=== PATIENT | male | born 1990 | race American Indian/Alaskan Native ===

== ENCOUNTER 2016-09-25 16:07 | Emergency (ER) | payer OTHER ==
[2016-09-25 16:35] VITALS: TEMP 98.8; BMI 27.4
--- NOTE | 2016-09-25 16:50 | ED PDOC ---
Arrival/HPI - General Chief Complaint: Back Pain Time Seen by Provider: 09/25/16 16:33 Historian: Patient - History of Present Illness Narrative History of Present Illness (Text): 09/25/16 16:45 26 y/o female, no pmh, nkda, c/o evaluation of the kidney with no back pain. Pt. stated that he has recent diet change, concerning that this might due to the harm to the kidney, didn't go to see his own pmd, here for the test of kidney function. Pt. has been urinating well and drinking well, no nausea or vomiting, no night sweat, no flank pain, no other medical or psychological complaints. Past Medical History - Provider Review Nursing Documentation Reviewed: Yes - Cardiac Hx Cardiac Disorders: No - Psychiatric Hx Psychophysiologic Disorder: Yes Hx Anxiety: Yes Hx Depression: Yes Hx Substance Use: No - Surgical History Hx Musculoskeletal Surgery: Yes (left elbow) - Anesthesia Hx Anesthesia: Yes Hx Anesthesia Reactions: No Hx Malignant Hyperthermia: No Family/Social History - Physician Review Nursing Documentation Reviewed: Yes Family/Social History: Unknown Family HX Smoking Status: n Hx Alcohol Use: No Hx Substance Use: No Allergies/Home Meds Allergies/Adverse Reactions: Allergies No Known Allergies Allergy (Verified 09/25/16 16:32) Home Medications: Home Meds Medication Instructions Recorded Confirmed Sertraline [Zoloft] 25 mg PO DAILY 09/25/16 09/25/16 Review of Systems - Review of Systems Constitutional: absent: Fatigue, Fevers Eyes: absent: Vision Changes ENT: absent: Hearing Changes Respiratory: absent: Cough Cardiovascular: absent: Chest Pain Gastrointestinal: absent: Abdominal Pain, Diarrhea, Nausea, Vomiting Skin: absent: Rash, Pruritis, Skin Lesions, Laceration, Abscess, Ulcer Neurological: absent: Headache, Dizziness, Focal Weakness, Gait Changes, Speech Changes, Facial Droop, Disequilibrium, Seizure Physical Exam Vital Signs Reviewed: Yes Vital Signs Temp Pulse Resp BP Pulse Ox 09/25/16 17:50 80 16 119/72 99 09/25/16 16:28 98.8 F 74 18 128/78 100 Temperature: Afebrile Blood Pressure: Normal Pulse: Regular Respiratory Rate: Normal Appearance: Positive for: Well-Appearing, Non-Toxic, Comfortable Pain Distress: None Mental Status: Positive for: Alert and Oriented X 3 - Systems Exam Head: Present: Atraumatic, Normocephalic Pupils: Present: PERRL Extroacular Muscles: Present: EOMI Conjunctiva: Present: Normal Mouth: Present: Moist Mucous Membranes Neck: Present: Normal Range of Motion Respiratory/Chest: Present: Clear to Auscultation, Good Air Exchange. No: Respiratory Distress, Accessory Muscle Use Cardiovascular: Present: Regular Rate and Rhythm, Normal S1, S2. No: Murmurs Abdomen: Present: Normal Bowel Sounds. No: Tenderness, Distention, Peritoneal Signs Back: Present: Normal Inspection. No: CVA Tenderness, Midline Tenderness, Paraspinal Tenderness, Pain with Leg Raise Upper Extremity: Present: Normal Inspection. No: Cyanosis, Edema Lower Extremity: Present: Normal Inspection. No: Edema Neurological: Present: GCS=15, CN II-XII Intact, Speech Normal Skin: Present: Warm, Dry, Normal Color. No: Rashes Psychiatric: Present: Alert, Oriented x 3, Normal Insight, Normal Concentration Medical Decision Making ED Course and Treatment: 09/25/16 16:55 -cmp 09/25/16 17:38 -Labs are within normal limit. -Pt. stated that he wants to be discharge home but he would like to have pain medication just in case if he has back pain in the future. -Discharge home with motrin, stay hydrated, bed rest, follow up with your own pmd within 2 days, return to the ER for any new or worsening signs or symptoms. 09/25/16 18:02 -pt. request a dose of motrin for his lower back pain as he has back pain from sitting, motrin 600mg po ordered. - Lab Interpretations Lab Results: 09/25/16 17:00 Lab Results 09/25/16 17:00: Sodium 140, Potassium 4.0, Chloride 103, Carbon Dioxide 27, Anion Gap 14, BUN 11, Creatinine 1.0, Est GFR ( Amer) > 60, Est GFR (Non- Af Amer) > 60, Random Glucose 89, Calcium 9.1, Total Bilirubin 1.1, AST 21, ALT 32, Alkaline Phosphatase 64, Total Protein 7.9, Albumin 4.5, Globulin 3.4, Albumin/Globulin Ratio 1.3 I have reviewed the lab results: Yes Interpretation: No clinic. lab abnormalty - PA / POULTRY CULLER / Resident Statement MD/DO has reviewed & agrees with the documentation as recorded. Disposition/Present on Arrival - Present on Arrival Any Indicators Present on Arrival: No History of DVT/PE: No History of Uncontrolled Diabetes: No Urinary Catheter: No History of Decub. Ulcer: No History Surgical Site Infection Following: None - Disposition Have Diagnosis and Disposition been Completed?: Yes Diagnosis: General medical examination Disposition: HOME/ ROUTINE Disposition Time: 16:55 Patient Plan: Discharge Patient Problems: Current Active Problems Problem Status Diagnosed General medical examination Acute Condition: GOOD Additional Instructions: Discharge home with motrin, stay hydrated, bed rest, follow up with your own pmd within 2 days, return to the ER for any new or worsening signs or symptoms. Prescriptions: Ibuprofen [Motrin] 600 mg PO QID PRN #24 tab PRN Reason: Other Referrals: Song Johnston MD [Primary Care Provider] - Follow up with primary Forms: WORK NOTE
[2016-09-25 17:19] LABS: ALB/GLOB RATIO 1.3 (1.1-1.8); ALKALINE PHOSPHATASE 64 U/L (38-133); ALT/SGPT 32 U/L (7-56); AST/SGOT 21 U/L (15-59); BILIRUBIN,TOTAL 1.1 mg/dL (0.2-1.3); BLOOD UREA NITROGEN 11 mg/dL (7-21); CALCIUM 9.1 mg/dL (8.4-10.5); CARBON DIOXIDE 27 mmol/L (21-33); CHLORIDE 103 mmol/L (98-107); GFR AFRICAN-AMERICAN > 60; GLUCOSE,RANDOM 89 mg/dL (70-110); SODIUM 140 mmol/L (132-148); TOTAL PROTEIN 7.9 g/dL (5.8-8.3)
[2016-09-25 17:51] VITALS: BP 119/72; PULSE 80; RESP 16; O2SAT 99
== END 2016-09-25 18:14 | disposition home or self-care (01) ==
LOC: ED 16:07
DX: Z00.00 Encounter for general adult medical examination without abnormal findings (principal)

== ENCOUNTER 2018-05-04 15:11 | Emergency (ER) | payer BC, OTHER ==
[2018-05-04 15:51] VITALS: BP 124/70; PULSE 84; RESP 18; TEMP 98.4; O2SAT 98; BMI 31.4
[2018-05-04 16:13] LABS: URINE BILIRUBIN NEGATIVE (NEGATIVE); URINE BLOOD TRACE-INTACT (NEGATIVE); URINE GLUCOSE (UA) NEGATIVE (NEGATIVE); URINE LEUKOCYTE ESTERASE NEGATIVE Leu/uL (NEGATIVE); URINE PROTEIN NEGATIVE mg/dL (<30 mg/dL)
[2018-05-04 16:22] LABS: URINE APPEARANCE CLEAR (CLEAR); URINE COLOR LIGHT YELLOW (YELLOW)
--- NOTE | 2018-05-04 16:35 | ED PDOC ---
Arrival/HPI - General Chief Complaint: Male Genitourinary Time Seen by Provider: 05/04/18 15:12 Historian: Patient - History of Present Illness Narrative History of Present Illness (Text): 05/04/18 17:15 27-year-old male presents today with a 5 day history of urinary frequency and urgency with occasional "leakage of urine". pt denies testicular pain. denies trauma or injury. pt admits to unprotected sex. pt states for the past 5 days he has been having episodes of small amount of urine on underwear. pt denies fever/chills. denies back pain. no abdominal pain. pt states he has been urinating more frequently with occasional dysuria. pt states after he goes to the bathroom he feels like he has to go again. no n/v/d/c. no other complaints. Past Medical History - Provider Review Nursing Documentation Reviewed: Yes - Travel History Have you recently traveled outside [place] w/in the past 3 mons?: No - Cardiac Hx Cardiac Disorders: No - Psychiatric Hx Psychophysiologic Disorder: Yes Hx Anxiety: Yes Hx Depression: Yes Hx Substance Use: No - Surgical History Hx Musculoskeletal Surgery: Yes (left elbow) - Anesthesia Hx Anesthesia: Yes Hx Anesthesia Reactions: No Hx Malignant Hyperthermia: No Family/Social History - Physician Review Nursing Documentation Reviewed: Yes Family/Social History: Unknown Family HX Smoking Status: Never Smoked Hx Alcohol Use: No Hx Substance Use: No Allergies/Home Meds Allergies/Adverse Reactions: Allergies No Known Allergies Allergy (Verified 09/25/16 16:32) Home Medications: Home Meds Medication Instructions Recorded Confirmed Sertraline [Zoloft] 25 mg PO DAILY 09/25/16 09/25/16 Review of Systems - Review of Systems Constitutional: absent: Fatigue, Fevers Respiratory: absent: SOB, Cough Cardiovascular: absent: Chest Pain, Palpitations Gastrointestinal: absent: Abdominal Pain, Nausea, Vomiting Genitourinary Male: Dysuria, Frequency. absent: Hematuria, Urinary Output Changes Musculoskeletal: absent: Arthralgias, Back Pain, Neck Pain Skin: absent: Rash, Pruritis Neurological: absent: Headache, Dizziness Psychiatric: absent: Anxiety, Depression Physical Exam Vital Signs Reviewed: Yes Vital Signs Temp Pulse Resp BP Pulse Ox 05/04/18 15:50 98.4 F 84 18 124/70 98 Temperature: Afebrile Blood Pressure: Normal Pulse: Regular Respiratory Rate: Normal Appearance: Positive for: Well-Appearing, Non-Toxic, Comfortable Pain Distress: None Mental Status: Positive for: Alert and Oriented X 3 - Systems Exam Head: Present: Atraumatic Mouth: Present: Moist Mucous Membranes Neck: Present: Normal Range of Motion Respiratory/Chest: Present: Clear to Auscultation, Good Air Exchange. No: Respiratory Distress, Accessory Muscle Use Cardiovascular: Present: Regular Rate and Rhythm, Normal S1, S2. No: Murmurs Abdomen: No: Tenderness, Distention, Peritoneal Signs, Rebound, Guarding Genitourinary Male: Present: Normal External Genitalia, Circumcised Penis, Other (chaparoned by Raul jeter.). No: Lesions, Penile Discharge, Testicle Tenderness, Penile Swelling, Erythema, Testicle Swelling Back: Present: Normal Inspection. No: CVA Tenderness Neurological: Present: GCS=15, Speech Normal Skin: Present: Warm, Dry, Normal Color. No: Rashes Psychiatric: Present: Alert, Oriented x 3 Medical Decision Making ED Course and Treatment: 05/04/18 17:29 Patient is nontoxic well-appearing in no distress with stable vital signs UA; + trace blood, no leukocytes Gonorrhea and Chlamydia cultures are pending. pt with hx of unprotected sex; will treat prophylactically for gc/chlamydia and have patient f/u with urologist for further evaluation. Ceftriaxone 250 mg IM Zithromax 1 g p.o. given i had a long conversation with patient and his mother regarding the need for immediate f/u with the urologist. Advised patient to refrain from sex for 10 days followup with the primary care physician within the next 2 days or return if symptoms worsen persist or if new symptoms develop. Patient verbalizes understanding of discharge instructions and need for immediate followup. all aspects of this case were discussed the attending of record. Impression: urinary frequency follow up with the Urologist within the next 2 days. Follow up primary care physician within the next 2 days Return if symptoms worsen persist or if new symptoms develop. - Lab Interpretations Lab Results: Lab Results 05/04/18 15:50: Urine Color Light yellow, Urine Appearance Clear, Urine pH 6.0, Ur Specific [place] >= 1.030, Urine Protein Negative, Urine Glucose (UA) Negative, Urine Ketones Trace H, Urine Blood Trace-intact H, Urine Nitrate Negative, Urine Bilirubin Negative, Urine Urobilinogen 1.0 H, Ur Leukocyte Esterase Negative, Urine RBC Pending, Urine WBC Pending Disposition/Present on Arrival - Present on Arrival Any Indicators Present on Arrival: No History of DVT/PE: No History of Uncontrolled Diabetes: No Urinary Catheter: No History of Decub. Ulcer: No History Surgical Site Infection Following: None - Disposition Have Diagnosis and Disposition been Completed?: Yes Diagnosis: Increased urinary frequency Disposition: HOME/ ROUTINE Disposition Time: 16:30 Patient Plan: Discharge Condition: GOOD Additional Instructions: follow up with the Urologist within the next 2 days. Follow up primary care physician within the next 2 days Return if symptoms worsen persist or if new symptoms develop. Referrals: Riri Kerns NP [Primary Care Provider] - Follow up with primary Christopher Ramos MD [Staff Provider] - Follow up with primary Dean Guerra MD [Staff Provider] - Follow up with primary Forms: [facility] (Vietnamese), WORK NOTE
[2018-05-04 16:42] LABS: URINE BACTERIA FEW (NEG); URINE EPITHELIAL CELLS 0 - 2 /hpf (0-5); URINE HYALINE CAST 0 - 2 /hpf
[2018-05-04] MEDS ORDERED: cefTRIAXone (Rocephin) 250 mg Inj IM STA (16:47)
== END 2018-05-04 17:45 | disposition home or self-care (01) ==
LOC: ED 15:11
DX: R35.0 Frequency of micturition (principal)
CPT/HCPCS: 81001; 87086; 87491; 87591; 96372; 99283; J0696